=== PATIENT | female | born 1995 | race Caucasian/White ===

== ENCOUNTER 2016-06-13 20:22 | Emergency (ER) | payer OTHER ==
[2016-06-13 21:13] LABS: SPECIFIC GRAVITY 1.025 (1.001-1.030); URINE APPEARANCE HAZY; URINE BILIRUBIN NEGATIVE (NEGATIVE); URINE BLOOD 1+ (NEGATIVE); URINE COLOR AMBER; URINE GLUCOSE (UA) NEGATIVE (NEGATIVE); URINE LEUKOCYTE ESTERASE NEGATIVE (NEGATIVE); URINE NITRITE NEGATIVE (NEGATIVE); URINE PROTEIN NEGATIVE (NEGATIVE); URINE UROBILINOGEN NORMAL (0-1 mg/dl)
[2016-06-13 21:14] LABS: HCG,QUALITATIVE URINE NEGATIVE
[2016-06-13 21:25] LABS: URINE BACTERIA FEW; URINE WBC 0-1 /hpf
[2016-06-13] MEDS ORDERED: ONDANSETRON 4 MG ODT TAB ONE (22:43)
[2016-06-13] MEDS ORDERED: IBUPROFEN 800 MG TABLET ONE (22:43)
--- NOTE | 2016-06-14 08:12 | US ---
Exam: Complete pelvic ultrasound COMPARISON: None INDICATION: Right-sided pelvic pain. FINDINGS: Transabdominal and transvaginal pelvic ultrasound was obtained. Retroverted uterus measures 7.4 x 3.9 x 5.3 cm and is homogeneous in echotexture. Endometrium within normal limits measuring up to 4 mm in bilayer thickness on the transvaginal exam. Right ovary measures 2.9 x 2.1 x 1.3 cm and left ovary measures 2.9 x 3.2 x 2.4 cm. There is no cystic or solid ovarian mass. Blood flow is present within both ovaries. There is a small amount of free fluid in the pelvis, within physiologic range. IMPRESSION: No acute findings identified to explain right-sided pelvic pain. I assume patient's beta hCG is 0. Preliminary report transmitted to the emergency department from [facility] at 0007 hours 06/14/2016.
[2016-06-15 15:03] LABS: CHLAMYDIA BD Negative (Negative); N.GONORRHOEAE BD Negative (Negative); SOURCE Urine (())
== END 2016-06-14 00:20 | disposition home or self-care (01) ==
LOC: ED 20:22
DX: R10.2 Pelvic and perineal pain (principal); F17.210 Nicotine dependence, cigarettes, uncomplicated; Z91.040 Latex allergy status; Z88.0 Allergy status to penicillin; Z91.048 Other nonmedicinal substance allergy status
CPT/HCPCS: 87491; 87591; 81025; 81001; 76856; 76830; 99283 ×2; A9270 ×2

== ENCOUNTER 2016-07-08 12:14 | Emergency (ER) | payer OTHER ==
[2016-07-08] MEDS ORDERED: PREDNISONE 20 MG TABLET ONE (12:57)
[2016-07-08] MEDS ORDERED: ONDANSETRON 4 MG ODT TAB ONE (13:21)
== END 2016-07-08 13:45 | disposition home or self-care (01) ==
LOC: ED 12:14
DX: J02.0 Streptococcal pharyngitis (principal)